=== PATIENT | female | born 1995 | race Caucasian/White ===

== ENCOUNTER 2019-10-08 15:13 | Observation (INO) | payer MEDICAID, OTHER ==
--- NOTE | 2019-10-08 16:18 | EDM.PDOC ---
ED HPI GENERAL MEDICAL PROBLEM - General Chief Complaint: Genitourinary Problem Stated Complaint: 15 WKS PG/POSS UTI Time Seen by Provider: 10/08/19 15:41 Source of Information: Reports: Patient History Limitations: Reports: No Limitations - History of Present Illness INITIAL COMMENTS - FREE TEXT/NARRATIVE: Patient is a 23-year-old female who presents with complaints of frequency, dysuria, back pain, fever, chills, nausea, and vomiting. Patient is 15 weeks . She states that the symptoms initially began early last week. She has a history of frequent urinary tract infections that generally go away on their own. She states symptoms did disappear Tuesday, however Tuesday they returned and have been getting progressively worse. Yesterday she began to develop a fever which she states was around 100.0, however she had been taking Tylenol. She also has bilateral low back pain. Today she started having nausea and vomiting. She denies any uterine cramping or vaginal bleeding. 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 ED EXAM, RENAL/ - Physical Exam Exam: See Below General Appearance: Alert, WD/WN, No Apparent Distress Respiratory/Chest: No Respiratory Distress, Lungs Clear, Normal Breath Sounds, No Accessory Muscle Use, Chest Non-Tender Cardiovascular: Normal Peripheral Pulses, Regular Rate, Rhythm, No Edema, No Gallop, No JVD, No Murmur, No Rub GI/Abdominal: Normal Bowel Sounds, Soft, No Organomegaly, No Distention, No Abnormal Bruit, No Mass, Tender (Suprapubic) (Female) Exam: Enlarged Uterus, Heart Tones (158) Course - Vital Signs Last Recorded V/S: Last Vital Signs Temp 98.2 F 10/08/19 15:47 Pulse 81 10/08/19 15:47 Resp 20 10/08/19 15:47 BP 111/77 10/08/19 15:47 Pulse Ox 100 10/08/19 15:47 - Orders/Labs/Meds Orders: Active Orders 24 hr Category Date Time Status Patient Status Manage Transfer [TRANSFER] Routine ADT 10/08/19 18:18 Active Sodium Chloride 0.9% [Normal Saline] 1,000 ml Med 10/08/19 17:45 Active IV ASDIRECTED cefTRIAXone [Rocephin] 2 gm Med 10/08/19 17:45 Active Sodium Chloride 0.9% [Normal Saline] 100 ml IV Q24H Resuscitation Status Routine Resus Stat 10/08/19 18:18 Ordered Medication Orders Ceftriaxone Sodium 2 gm/ (Sodium Chloride) 100 mls @ 200 mls/hr IV Q24H [facility] Last Admin: 10/08/19 17:48 Dose: 200 mls/hr Sodium Chloride (Normal Saline) 1,000 mls @ 150 mls/hr IV ASDIRECTED [facility] Last Admin: 10/08/19 17:47 Dose: 150 mls/hr Labs: Laboratory Tests 10/08/19 10/08/19 10/08/19 Range/Units 15:52 15:52 16:04 WBC 8.32 (3.98-10.04) K/mm3 RBC 3.92 L (3.98-5.22) M/mm3 Hgb 10.9 L (11.2-15.7) gm/dl Hct 33.2 L (34.1-44.9) % MCV 84.7 (79.4-94.8) fl MCH 27.8 (25.6-32.2) pg MCHC 32.8 (32.2-35.5) g/dl RDW Std Deviation 43.9 (36.4-46.3) fL Plt Count 184 (182-369) K/mm3 MPV 10.6 (9.4-12.3) fl Neut % (Auto) 73.4 H (34.0-71.1) % Lymph % (Auto) 14.7 L (19.3-51.7) % [place] % (Auto) 6.3 (4.7-12.5) % Eos % (Auto) 5.0 (0.7-5.8) Baso % (Auto) 0.1 (0.1-1.2) % Neut # (Auto) 6.11 (1.56-6.13) K/mm3 Lymph # (Auto) 1.22 (1.18-3.74) K/mm3 [place] # (Auto) 0.52 H (0.24-0.36) K/mm3 Eos # (Auto) 0.42 H (0.04-0.36) K/mm3 Baso # (Auto) 0.01 (0.01-0.08) K/mm3 Sodium 140 (136-145) mEq/L Potassium 4.3 (3.5-5.1) mEq/L Chloride 106 (98-107) mEq/L Carbon Dioxide 22 (21-32) mEq/L Anion Gap 16.3 H (5-15) BUN 10 (7-18) mg/dL Creatinine 0.6 (0.55-1.02) mg/dL Est Cr Clr Drug Dosing 160.20 mL/min Estimated GFR (MDRD) > 60 (>60) mL/min BUN/Creatinine Ratio 16.7 (14-18) Glucose 87 (74-106) mg/dL Calcium 9.1 (8.5-10.1) mg/dL Total Bilirubin 0.2 (0.2-1.0) mg/dL AST 12 L (15-37) U/L ALT 17 (14-59) U/L Alkaline Phosphatase 66 (46-116) U/L C-Reactive Protein 0.3 (<1.0) mg/dL Total Protein 6.8 (6.4-8.2) g/dl Albumin 3.0 L (3.4-5.0) g/dl Globulin 3.8 gm/dL Albumin/Globulin Ratio 0.8 L (1-2) Urine Color Yellow (Yellow) Urine Appearance Slt cloudy H (Clear) Urine pH 7.0 (5.0-8.0) Ur Specific [place] > or = 1.030 (1.005-1.030) Urine Protein Trace H (Negative) Urine Glucose (UA) Negative (Negative) Urine Ketones Negative (Negative) Urine Occult Blood 1+ H (Negative) Urine Nitrite Negative (Negative) Urine Bilirubin Negative (Negative) Urine Urobilinogen 1.0 (0.2-1.0) Ur Leukocyte Esterase 1+ H (Negative) Urine RBC 10-20 H (0-5) /hpf Urine WBC 50-75 H (0-5) /hpf Ur Squamous Epith Cells 5-10 H (0-5) /hpf Urine Bacteria Moderate H (FEW) /hpf Urine Mucus Few (FEW) /hpf Meds: Medications Generic Name Dose Route Start Last Admin Trade Name Freq PRN Reason Stop Dose Admin Ceftriaxone Sodium 2 gm/ 100 mls @ 200 mls/hr 10/08/19 17:45 10/08/19 17:48 Sodium Chloride IV 200 mls/hr Q24H OLAMIDE Administration Sodium Chloride 1,000 mls @ 150 mls/hr 10/08/19 17:45 10/08/19 17:47 Normal Saline IV 150 mls/hr ASDIRECTED OLAMIDE Administration Discontinued Medications Generic Name Dose Route Start Last Admin Trade Name Freq PRN Reason Stop Dose Admin Hydromorphone HCl 0.5 mg 10/08/19 17:40 10/08/19 17:47 Dilaudid IVPUSH 10/08/19 17:41 0.5 mg ONETIME ONE Administration - Re-Assessments/Exams Free Text/Narrative Re-Assessment/Exam: 10/08/19 1730 Patient's hematology showed a WBC normal at 8.32, hemoglobin slightly low at 10.9, anion gap slightly elevated at 16.3. CRP was normal at 0.3. Urinalysis was positive for urinary tract infection. Based on the patient's symptoms, I feel this must be treated as a pyelonephritis as opposed to a uncomplicated urinary tract infection. I did call and speak with the on-call RADIOGRAPHER TECHNOLOGIST, Dr. Hughes. He is in agreement with this and recommended that the patient be admitted for IV antibiotics. He recommended that we give Rocephin 2 g IV now. Discussed this with the patient and she is in agreement with this plan. She does continue to have low back pain. I will give her a dose of Dilaudid 0.5 mg now. Have also ordered IV fluids of NS at 150. Dr. Hughes will come to see the patient and admit. 10/08/19 18:15 Dr. Hughes was here to see the patient. He will admit her as an inpatient for pyelonephritis. Departure - Departure Time of Disposition: 18:45 Disposition: Admitted As Inpatient 64 Condition: Fair Clinical Impression: Pyelonephritis - Discharge Information Referrals: PCP,None [Primary Care Provider] - Forms: ED Department Discharge Sepsis Event Note - Evaluation Sepsis Screening Result: No Definite Risk - Focused Exam Vital Signs: Vital Signs Temp Pulse Resp BP Pulse Ox 10/08/19 15:47 98.2 F 81 20 111/77 100 Date Exam was Performed: 10/08/19 Time Exam was Performed: 18:45 - My Orders Last 24 Hours: My Active Orders 10/08/19 17:45 Sodium Chloride 0.9% [Normal Saline] 1,000 ml IV ASDIRECTED cefTRIAXone [Rocephin] 2 gm Sodium Chloride 0.9% [Normal Saline] 100 ml IV Q24H - Assessment/Plan Last 24 Hours: My Active Orders 10/08/19 17:45 Sodium Chloride 0.9% [Normal Saline] 1,000 ml IV ASDIRECTED cefTRIAXone [Rocephin] 2 gm Sodium Chloride 0.9% [Normal Saline] 100 ml IV Q24H
[2019-10-08] MEDS ORDERED: HYDROmorphone 0.5 MG/0.5 ML Syringe IVPUSH ONE (17:40)
[2019-10-08] MEDS ORDERED: Sodium Chloride 0.9% 1,000 ML IV SCH ×2 (17:45→19:33)
[2019-10-08] MEDS: cefTRIAXone 2 GM in Sodium Chloride 0.9% 100 ML IV SCH (17:48)
--- NOTE | 2019-10-08 18:17 | PCM.LDHP ---
L&D History of Present Illness - General Date of Service: 10/08/19 Admit Problem/Dx: Admission Diagnosis/Problem Admission Diagnosis/Problem Source of Information: Patient History Limitations: Reports: No Limitations - History of Present Illness Introduction:: Nikki Smallwood is a 23-year-old -1-0-5 female at 15 weeks 2 days by certain LMP of 06/23/2019 (NAOMI 03/29/2020) that was confirmed by an ultrasound done at approximately 8 weeks gestational age while she was living in [place]. She reports that she had been having urinary tract infection-like symptoms last week with pain and burning with urination but she was able to get the symptoms to go away with increased fluid intake as well as cranberry juice. She states that on Tuesday the symptoms came back and were worse than what they were earlier in the week. She states that she was having severe pain and burning with urination as well as urinary frequency. She denies any urinary urgency. She states that she started to have right-sided back pain on Tuesday as well as fevers but did not come in initially. She states that this morning she started to have significant nausea and vomiting and was not able to keep anything down. She was able to drink a small amount of water this morning but then had emesis after breakfast. She continues to have significant dysuria and pelvic pain. She states that she is having a small amount of uterine cramping but denies any contractions or significant pain. She did not have any of the uterine cramping-like symptoms outside of the times when she was having the urinary tract infection-like symptoms. She denies any leaking of fluid or vaginal bleeding. She denies any respiratory symptoms such as shortness of breath or cough. She states that she has been feeling fevers and chills throughout the day today. She has not felt significant movement but has felt some occasional flutters in this . She has not established care with a provider in this and is planning on moving back to [place] with her in the next 1 to 2 weeks. Timing/Duration: Reports: gradual onset, getting worse Location, : Reports: Lower back, Flank Quality: Reports: Burning, Pressure, Throbbing Severity: Moderate Improves with: Reports: None Worsens with: Reports: None Associated Symptoms: Denies: vaginal bleeding, vaginal discharge, vaginal fluid - Related Data Allergies/Adverse Reactions: Allergies Allergy/AdvReac Type Severity Reaction Status Date / Time No Known Allergies Allergy Verified 01/26/19 15:52 CDT Home Medications: Home Meds Ferrous Sulfate, Dried [Iron] 1 tab PO TID 10/08/19 [History] Pnv No.103/Folic/Om3s/Fish Oil [ Gummies] 1 tab PO BID 10/08/19 [History ] Past Medical History - Past Health History Medical/Surgical History: Denies Medical/Surgical History Genitourinary History: Reports: UTI, Recurrent 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: : 6 Para: 5 Psychiatric History: Reports: Anxiety, Bipolar, Depression, Suicide Attempt ( History of) Hematologic History: Reports: Anemia Social & Family History - Tobacco Use Smoking Status *Q: Never Smoker - Tobacco Core Measures Tobacco Use/Smoking Within Last 30 Days: No Smokeless Tobacco Use in Last 30 Days: No - Caffeine Use Caffeine Use: Reports: Tea - Alcohol Use Alcohol Use History: No - Recreational Drug Use Recreational Drug Use: No - Living Situation & Occupation Living situation: Reports: , with Spouse H&P Review of Systems - Review of Systems: Review Of Systems: See Below General: Reports: Fever, Chills. Denies: Malaise, Weakness, Fatigue HEENT: Reports: Headaches. Denies: Post Nasal Drip, Sinus Congestion, Sore Throat, Visual Changes Pulmonary: Denies: Shortness of Breath, Wheezing, Cough Cardiovascular: Denies: Chest Pain, Palpitations, Dyspnea on Exertion, Orthopnea Gastrointestinal: Reports: Nausea, Vomiting. Denies: Abdominal Pain, Constipation, Diarrhea Genitourinary: Reports: Dysuria, Frequency, Burning, Pain, Flank Pain. Denies: Urgency, Hematuria Musculoskeletal: Denies: Back Pain Skin: Denies: Rash, Lesions Psychiatric: Denies: Depression, Anxiety Hematologic/Lymphatic: Reports: Anemia L&D Exam - Exam Exam: See Below - Vital Signs Vital Signs: Last Vital Signs Temp 36.8 C 10/08/19 15:47 Pulse 81 10/08/19 15:47 Resp 20 10/08/19 15:47 BP 111/77 10/08/19 15:47 Pulse Ox 100 10/08/19 15:47 Weight: 97.522 kg - OB Specific Fundal Height In cm: 16 (4 below umbilicus) Movement: Not Appreciated Heart Tones: Present Heart Tones per Min: 155 - Exam General: Alert, Oriented HEENT: Conjunctiva Clear, EOMI Neck: Supple, Trachea Midline Lungs: Clear to Auscultation, Normal Respiratory Effort Cardiovascular: Regular Rate, Regular Rhythm GI/Abdominal Exam: Soft, No Distention, Tender (mild suprapubic tenderness). No : Guarding, Rigid, Rebound Genitourinary: Deferred Back Exam: Normal Inspection, Full Range of Motion, CVA Tenderness (R) (mild tenderness). No: CVA Tenderness (L) Extremities: Normal Inspection, No Pedal Edema Skin: Warm, Dry, Intact Psychiatric: Alert, Normal Affect, Normal Mood. No: Suicidal Ideation - Patient Data Lab Results Last 24 hrs: Laboratory Results - last 24 hr 10/08/19 10/08/19 10/08/19 Range/Units 15:52 15:52 16:04 WBC 8.32 (3.98-10.04) K/mm3 RBC 3.92 L (3.98-5.22) M/mm3 Hgb 10.9 L (11.2-15.7) gm/dl Hct 33.2 L (34.1-44.9) % MCV 84.7 (79.4-94.8) fl MCH 27.8 (25.6-32.2) pg MCHC 32.8 (32.2-35.5) g/dl RDW Std Deviation 43.9 (36.4-46.3) fL Plt Count 184 (182-369) K/mm3 MPV 10.6 (9.4-12.3) fl Neut % (Auto) 73.4 H (34.0-71.1) % Lymph % (Auto) 14.7 L (19.3-51.7) % [place] % (Auto) 6.3 (4.7-12.5) % Eos % (Auto) 5.0 (0.7-5.8) Baso % (Auto) 0.1 (0.1-1.2) % Neut # (Auto) 6.11 (1.56-6.13) K/mm3 Lymph # (Auto) 1.22 (1.18-3.74) K/mm3 [place] # (Auto) 0.52 H (0.24-0.36) K/mm3 Eos # (Auto) 0.42 H (0.04-0.36) K/mm3 Baso # (Auto) 0.01 (0.01-0.08) K/mm3 Sodium 140 (136-145) mEq/L Potassium 4.3 (3.5-5.1) mEq/L Chloride 106 (98-107) mEq/L Carbon Dioxide 22 (21-32) mEq/L Anion Gap 16.3 H (5-15) BUN 10 (7-18) mg/dL Creatinine 0.6 (0.55-1.02) mg/dL Est Cr Clr Drug Dosing 160.20 mL/min Estimated GFR (MDRD) > 60 (>60) mL/min BUN/Creatinine Ratio 16.7 (14-18) Glucose 87 (74-106) mg/dL Calcium 9.1 (8.5-10.1) mg/dL Total Bilirubin 0.2 (0.2-1.0) mg/dL AST 12 L (15-37) U/L ALT 17 (14-59) U/L Alkaline Phosphatase 66 (46-116) U/L C-Reactive Protein 0.3 (<1.0) mg/dL Total Protein 6.8 (6.4-8.2) g/dl Albumin 3.0 L (3.4-5.0) g/dl Globulin 3.8 gm/dL Albumin/Globulin Ratio 0.8 L (1-2) Urine Color Yellow (Yellow) Urine Appearance Slt cloudy H (Clear) Urine pH 7.0 (5.0-8.0) Ur Specific [place] > or = 1.030 (1.005-1.030) Urine Protein Trace H (Negative) Urine Glucose (UA) Negative (Negative) Urine Ketones Negative (Negative) Urine Occult Blood 1+ H (Negative) Urine Nitrite Negative (Negative) Urine Bilirubin Negative (Negative) Urine Urobilinogen 1.0 (0.2-1.0) Ur Leukocyte Esterase 1+ H (Negative) Urine RBC 10-20 H (0-5) /hpf Urine WBC 50-75 H (0-5) /hpf Ur Squamous Epith Cells 5-10 H (0-5) /hpf Urine Bacteria Moderate H (FEW) /hpf Urine Mucus Few (FEW) /hpf Result Diagrams: 10/08/19 15:52 10/08/19 15:52 - Problem List (1) 15 weeks gestation of SNOMED Code(s): 2818778 ICD Code: Z3A.15 - 15 WEEKS GESTATION OF Status: Acute Current Visit: Yes (2) Pyelonephritis affecting in second trimester SNOMED Code(s): 80241127, [id number], 015559098, 219059637 ICD Code: O23.02 - INFECTIONS OF KIDNEY IN , SECOND TRIMESTER Status: Acute Current Visit: Yes (3) Anxiety SNOMED Code(s): 99351895 ICD Code: F41.9 - ANXIETY DISORDER, UNSPECIFIED Status: Acute Current Visit: Yes (4) Depression SNOMED Code(s): 94407595 ICD Code: F32.9 - MAJOR DEPRESSIVE DISORDER, SINGLE EPISODE, UNSPECIFIED Status: Acute Current Visit: Yes Problem List Initiated/Reviewed/Updated: Yes Orders Last 24hrs: Active Orders 24 hr Category Date Time Status Sodium Chloride 0.9% [Normal Saline] 1,000 ml Med 10/08/19 17:45 Active IV ASDIRECTED cefTRIAXone [Rocephin] 2 gm Med 10/08/19 17:45 Active Sodium Chloride 0.9% [Normal Saline] 100 ml IV Q24H Medication Orders Ceftriaxone Sodium 2 gm/ (Sodium Chloride) 100 mls @ 200 mls/hr IV Q24H [facility] Last Admin: 10/08/19 17:48 Dose: 200 mls/hr Sodium Chloride (Normal Saline) 1,000 mls @ 150 mls/hr IV ASDIRECTED [facility] Last Admin: 10/08/19 17:47 Dose: 150 mls/hr Assessment/Plan Comment:: 23-year-old -1-0-5 female at 15 weeks 2 days with pyelonephritis * Refer to observation for pyelonephritis in * Vitals twice per shift including temperature * Activity as tolerated * heart tones once per shift and as needed * Regular diet as tolerated * Normal saline at 125 mL/h until patient tolerating normal amount of regular intake * Tylenol 650 mg every 6 hours as needed for fever and pain. May use oxycodone 5 mg p.o. every 4 hours as needed for breakthrough pain that is not controlled with Tylenol. * Zofran 4 mg oral dissolving tablet 4 mild nausea and vomiting. May use Zofran 4 mg IV if not tolerating oral medications. * vitamin daily * Ferrous sulfate 1 tablet daily with breakfast for mild anemia * Ceftriaxone 2 g IV given in the emergency department and will continue every 24 hours for treatment of her pyelonephritis Baldemar Hughes MD 6:44 PM 10/08/2019
[2019-10-08] MEDS ORDERED: Ondansetron 4 MG/2 ML SDV IVPUSH ONE (19:04)
[2019-10-08] MEDS ORDERED: oxyCODONE 5 MG Tab PO PRN (19:33)
[2019-10-08] MEDS ORDERED: Ondansetron 4 MG Tab.DIS PO PRN (19:33)
[2019-10-08] MEDS: Acetaminophen 325 MG Tab PO PRN (20:35)
[2019-10-09] MEDS: Acetaminophen 325 MG Tab PO PRN ×2 (06:19→12:42)
[2019-10-09] MEDS ORDERED: Ferrous Sulfate 324 MG Tab.EC PO SCH (07:00)
[2019-10-09] MEDS ORDERED: Prenatal Multivitamin with Calcium/Folic Acid/Iron Tab PO SCH (09:00)
[2019-10-09] MEDS ORDERED: Sodium Chloride 0.9% 10 ML Syringe FLUSH PRN (09:16)
--- NOTE | 2019-10-09 09:51 | PCM.SN ---
- Free Text/Narrative Note: Antepartum Progress Note Subjective: Hospital day #2 Nikki Smallwood is a 23-year-old female at 15 weeks 3 days (NAOMI 03/29/2020 ) with pyelonephritis in Patient reports that her pain has improved and denies any fevers or chills overnight. Reports that she did have some mild nausea after eating a sandwich last evening. Her nausea was significantly improved and she did not have any emesis. She reports that she continues to have a small amount of burning in the back pain with urination. But it has improved. She reports that she did have one time overnight when she used oxycodone to control some of her pain. She did not have any nausea or vomiting after taking the oxycodone. She reports that she has been ambulating to the bathroom without difficulty but has been moving somewhat slowly. Reports that she has been feeling hungry this morning and ordered breakfast. Denies any abdominal pain or cramping. Denies any leaking of fluid or vaginal bleeding. Continues to feel some small flutters for movement at this time. Objective: Vitals Vital Signs - 24 hr 10/08/19 10/08/19 10/09/19 15:47 20:18 02:20 Temperature 36.7 C 36.6 C Temperature [ 36.8 C Temporal] Pulse, 67 62 Peripheral Pulse, 81 Peripheral [ Left Pulse Oximetry] Respiratory 20 16 15 Rate Blood Pressure 105/71 97/58 L Blood Pressure 111/77 [Left Upper Arm ] O2 Sat by Pulse 100 100 98 Oximetry Physical exam: General Appearance: No distress, alert and oriented Respiratory: Clear to auscultation bilaterally Cardiovascular: Regular rate and rhythm Gastrointestinal: Soft, nontender, nondistended, gravid Back: Mild low back pain with pressure. No CVA tenderness bilaterally. Extremities: No edema noted in lower extremities bilaterally Laboratory Results - last 24 hr 10/08/19 10/08/19 10/08/19 Range/Units 15:52 15:52 16:04 WBC 8.32 (3.98-10.04) K/mm3 RBC 3.92 L (3.98-5.22) M/mm3 Hgb 10.9 L (11.2-15.7) gm/dl Hct 33.2 L (34.1-44.9) % MCV 84.7 (79.4-94.8) fl MCH 27.8 (25.6-32.2) pg MCHC 32.8 (32.2-35.5) g/dl RDW Std Deviation 43.9 (36.4-46.3) fL Plt Count 184 (182-369) K/mm3 MPV 10.6 (9.4-12.3) fl Neut % (Auto) 73.4 H (34.0-71.1) % Lymph % (Auto) 14.7 L (19.3-51.7) % [place] % (Auto) 6.3 (4.7-12.5) % Eos % (Auto) 5.0 (0.7-5.8) Baso % (Auto) 0.1 (0.1-1.2) % Neut # (Auto) 6.11 (1.56-6.13) K/mm3 Lymph # (Auto) 1.22 (1.18-3.74) K/mm3 [place] # (Auto) 0.52 H (0.24-0.36) K/mm3 Eos # (Auto) 0.42 H (0.04-0.36) K/mm3 Baso # (Auto) 0.01 (0.01-0.08) K/mm3 Sodium 140 (136-145) mEq/L Potassium 4.3 (3.5-5.1) mEq/L Chloride 106 (98-107) mEq/L Carbon Dioxide 22 (21-32) mEq/L Anion Gap 16.3 H (5-15) BUN 10 (7-18) mg/dL Creatinine 0.6 (0.55-1.02) mg/dL Est Cr Clr Drug Dosing 160.20 mL/min Estimated GFR (MDRD) > 60 (>60) mL/min BUN/Creatinine Ratio 16.7 (14-18) Glucose 87 (74-106) mg/dL Calcium 9.1 (8.5-10.1) mg/dL Total Bilirubin 0.2 (0.2-1.0) mg/dL AST 12 L (15-37) U/L ALT 17 (14-59) U/L Alkaline Phosphatase 66 (46-116) U/L C-Reactive Protein 0.3 (<1.0) mg/dL Total Protein 6.8 (6.4-8.2) g/dl Albumin 3.0 L (3.4-5.0) g/dl Globulin 3.8 gm/dL Albumin/Globulin Ratio 0.8 L (1-2) Urine Color Yellow (Yellow) Urine Appearance Slt cloudy H (Clear) Urine pH 7.0 (5.0-8.0) Ur Specific [place] > or = 1.030 (1.005-1.030) Urine Protein Trace H (Negative) Urine Glucose (UA) Negative (Negative) Urine Ketones Negative (Negative) Urine Occult Blood 1+ H (Negative) Urine Nitrite Negative (Negative) Urine Bilirubin Negative (Negative) Urine Urobilinogen 1.0 (0.2-1.0) Ur Leukocyte Esterase 1+ H (Negative) Urine RBC 10-20 H (0-5) /hpf Urine WBC 50-75 H (0-5) /hpf Ur Squamous Epith Cells 5-10 H (0-5) /hpf Urine Bacteria Moderate H (FEW) /hpf Urine Mucus Few (FEW) /hpf FHTs: 145s Assessment: Nikki Smallwood is a 23-year-old female at 15 weeks 3 days with pyelonephritis in Plan: Patient showing some improvement today. No fevers overnight. Her symptoms have been improving although she does continue to have some mild low back pain. Suspect that this is due to the ongoing infection. Plan will be to continue IV Rocephin at around 24 hours today and discharge home on oral antibiotics. Saline lock IV at this time Continue Tylenol and oxycodone as needed. Anticipate discharge later this afternoon after patient has received a second dose of IV Rocephin 2 g Baldemar Hughes M.D. 9:50 AM 10/09/2019
[2019-10-09] MEDS: cefTRIAXone 2 GM in Sodium Chloride 0.9% 100 ML IV SCH (16:13)
--- NOTE | 2019-10-09 17:25 | PCM.SN ---
- Free Text/Narrative Note: Antepartum Progress Note Subjective: Hospital day #2 afternoon check Nikki Smallwood is a 23-year-old female at 15 weeks 3 days (NAOMI 03/29/2020 ) with pyelonephritis in Patient reports that her pain has improved throughout the day and denies any fevers or chills. Denies any nausea or vomiting. Reports that she has tolerated regular diet throughout the day. Orts that her burning with urination has resolved and that she only has very mild back pain at this time. She reports that she has been ambulating to the bathroom without difficulty. Denies any abdominal pain or cramping. Denies any leaking of fluid or vaginal bleeding. Continues to feel some small flutters for movement at this time. Objective: Vitals Vital Signs 10/09/19 15:00 Temperature [ 36.9 C Temporal] Pulse, 80 Peripheral [ Left Pulse Oximetry] Respiratory 16 Rate Blood Pressure 118/76 [Left Upper Arm ] O2 Sat by Pulse 100 Oximetry Physical exam: General Appearance: No distress, alert and oriented Respiratory: Unlabored breathing FHTs: 145s Assessment: Nikki Smallwood is a 23-year-old female at 15 weeks 3 days with pyelonephritis in status post 2 doses of IV Rocephin Plan: Patient with improvement throughout the day today. She received second dose of IV Rocephin and feels like she is doing well enough to go home. Patient would like to be discharged. IV removed Continue Tylenol as needed for pain Discharge home with oral antibiotics to start in the morning tomorrow. Baldemar Hughes M.D. 5:25 PM 10/09/2019
--- NOTE | 2019-10-09 17:34 | PCM.DCSUM1 ---
Discharge Summary - Hospital Course Free Text/Narrative:: Nikki Smallwood is a 23-year-old -1-0-5 female at 15 weeks 2 days by certain LMP of 06/23/2019 (NAOIM 03/29/2020) that was confirmed by an ultrasound done at approximately 8 weeks gestational age while she was living in [place]. She reports that she had been having urinary tract infection-like symptoms last week with pain and burning with urination but she was able to get the symptoms to go away with increased fluid intake as well as cranberry juice. She states that on Tuesday the symptoms came back and were worse than what they were earlier in the week. She states that she was having severe pain and burning with urination as well as urinary frequency. She denies any urinary urgency. She states that she started to have right-sided back pain on Tuesday as well as fevers but did not come in initially. She states that this morning she started to have significant nausea and vomiting and was not able to keep anything down. She was able to drink a small amount of water this morning but then had emesis after breakfast. She continues to have significant dysuria and pelvic pain. She states that she is having a small amount of uterine cramping but denies any contractions or significant pain. She did not have any of the uterine cramping-like symptoms outside of the times when she was having the urinary tract infection-like symptoms. She denies any leaking of fluid or vaginal bleeding. She denies any respiratory symptoms such as shortness of breath or cough. She states that she has been feeling fevers and chills throughout the day today. She has not felt significant movement but has felt some occasional flutters in this . HPI Initial Comments: Nikki Smallwood is a 23-year-old -1-0-5 female at 15 weeks 2 days by certain LMP of 06/23/2019 (NAOMI 03/29/2020) that was confirmed by an ultrasound done at approximately 8 weeks gestational age while she was living in [place]. She reports that she had been having urinary tract infection-like symptoms last week with pain and burning with urination but she was able to get the symptoms to go away with increased fluid intake as well as cranberry juice. She states that on Tuesday the symptoms came back and were worse than what they were earlier in the week. She states that she was having severe pain and burning with urination as well as urinary frequency. She denies any urinary urgency. She states that she started to have right-sided back pain on Tuesday as well as fevers but did not come in initially. She states that this morning she started to have significant nausea and vomiting and was not able to keep anything down. She was able to drink a small amount of water this morning but then had emesis after breakfast. She continues to have significant dysuria and pelvic pain. She states that she is having a small amount of uterine cramping but denies any contractions or significant pain. She did not have any of the uterine cramping-like symptoms outside of the times when she was having the urinary tract infection-like symptoms. She denies any leaking of fluid or vaginal bleeding. She denies any respiratory symptoms such as shortness of breath or cough. She states that she has been feeling fevers and chills throughout the day today. She has not felt significant movement but has felt some occasional flutters in this . Brief History: Nikki Smallwood is a 23-year-old -1-0-5 female at 15 weeks 2 days by certain LMP of 06/23/2019 (NAOMI 03/29/2020) that was confirmed by an ultrasound done at approximately 8 weeks gestational age while she was living in [place]. She reports that she had been having urinary tract infection-like symptoms last week with pain and burning with urination but she was able to get the symptoms to go away with increased fluid intake as well as cranberry juice. She states that on Tuesday the symptoms came back and were worse than what they were earlier in the week. She states that she was having severe pain and burning with urination as well as urinary frequency. She denies any urinary urgency. She states that she started to have right-sided back pain on Tuesday as well as fevers but did not come in initially. She states that this morning she started to have significant nausea and vomiting and was not able to keep anything down. She was able to drink a small amount of water this morning but then had emesis after breakfast. She continues to have significant dysuria and pelvic pain. She states that she is having a small amount of uterine cramping but denies any contractions or significant pain. She did not have any of the uterine cramping-like symptoms outside of the times when she was having the urinary tract infection-like symptoms. She denies any leaking of fluid or vaginal bleeding. She denies any respiratory symptoms such as shortness of breath or cough. She states that she has been feeling fevers and chills throughout the day today. She has not felt significant movement but has felt some occasional flutters in this . Diagnosis: Stroke: No - Discharge Data Discharge Date: 10/09/19 Discharge Disposition: Home, Self-Care 01 Condition: Good - Referral to Home Health Primary Care Physician: PCP None - Discharge Diagnosis/Problem(s) (1) Pyelonephritis SNOMED Code(s): 25521650 ICD Code: N12 - TUBULO-INTERSTITIAL NEPHRITIS, NOT SPCF ACUTE OR CHRONIC Status: Acute Current Visit: Yes - Patient Summary/Data Complications: None Consults: None Hospital Course: Patient was seen in the emergency department for significant right-sided flank pain with fevers. She was diagnosed with pyelonephritis after other causes of her back pain were ruled out. Her urinalysis showed strong likelihood of urinary tract infection and given her right-sided CVA tenderness with elevated temperature she was diagnosed with pyelonephritis. She was referred for observation from the emergency department for management with IV antibiotics. She was given Rocephin 2 g IV for treatment of her pyelonephritis. She was continued on normal saline at 125 mL/h for fluid hydration. She was given 1 dose of Dilaudid for pain management in the emergency department. Overnight she was having significant nausea and vomiting as well as back pain. She received 1 dose of oxycodone 5 mg p.o. for treatment of her back pain. In the morning of hospital day #2 her pain was continuing but her fever had resolved. She was able to tolerate regular diet in the morning of hospital day #2 and her IV was saline locked. She was improving throughout the day on hospital day #2 and her pain was able to be controlled with Tylenol alone. In the afternoon of hospital day #2 she was given second dose of Rocephin 2 g IV and afterwards she felt well enough to be able to be discharged home. On review of patient she was doing well at this time. She was tolerating regular diet without any nausea or vomiting. Her pain was minimal and able to be controlled with Tylenol. She was ambulating without difficulty. She was afebrile for 24 hours. Patient was discharged home with prescription for Keflex 500 mg 4 times daily for 10 days. Patient is to follow-up with her regular [facility] [facility] in [place] once she returns to her home in [place]. - Patient Instructions Diet: Regular Diet as Tolerated Activity: Apply Ice, As Tolerated Driving: May Drive Today Showering/Bathing: May Shower Notify Provider of: Fever, Increased Pain, Nausea and/or Vomiting - Discharge Plan *PRESCRIPTION DRUG MONITORING PROGRAM REVIEWED*: Not Applicable *COPY OF PRESCRIPTION DRUG MONITORING REPORT IN PATIENT OMER: Not Applicable Prescriptions/Med Rec: Cephalexin [Keflex] 500 mg PO QID 10 Days #40 capsule Ondansetron [Zofran ODT] 4 mg PO Q4H PRN #30 tab.dis PRN Reason: Nausea/Vomiting Home Medications: Home Meds Ferrous Sulfate, Dried [Iron] 1 tab PO TID 10/08/19 [History] Pnv No.103/Folic/Om3s/Fish Oil [ Gummies] 1 tab PO BID 10/08/19 [History ] Acetaminophen [Tylenol] 650 mg PO Q6H PRN tablet 10/09/19 [Rx] Cephalexin [Keflex] 500 mg PO QID 10 Days #40 capsule 10/09/19 [Rx] Ondansetron [Zofran ODT] 4 mg PO Q4H PRN #30 tab.dis 10/09/19 [Rx] Patient Handouts: Pyelonephritis During Forms: ED Department Discharge Referrals: PCP,None [Primary Care Provider] - (Follow-up with your regular [facility] [facility] once you have returned to [place].) - Discharge Summary/Plan Comment DC Time >30 min.: No - Patient Data Vitals - Most Recent: Last Vital Signs Temp 36.9 C 10/09/19 15:00 Pulse 80 10/09/19 15:00 Resp 16 10/09/19 15:00 BP 118/76 10/09/19 15:00 Pulse Ox 100 10/09/19 15:00 Weight - Most Recent: 97.522 kg I&O - Last 24 hours: Intake & Output 10/09/19 10/09/19 10/09/19 06:59 14:59 22:59 Intake Total 120 360 Balance 120 360 Med Orders - Current: Current Medications Acetaminophen (Tylenol) 650 mg PO Q6H PRN PRN Reason: mild pain and fever Last Admin: 10/09/19 12:42 Dose: 650 mg Ferrous Sulfate (Ferrous Sulfate) 324 mg PO WITHBREAKFAST [facility] Last Admin: 10/09/19 08:24 Dose: 324 mg Ceftriaxone Sodium 2 gm/ (Sodium Chloride) 100 mls @ 200 mls/hr IV Q24H [facility] Last Admin: 10/09/19 16:13 Dose: 200 mls/hr Ondansetron HCl (Zofran Odt) 4 mg PO Q4H PRN PRN Reason: Nausea/Vomiting Oxycodone HCl (Oxycodone) 5 mg PO Q4H PRN PRN Reason: Pain (severe 7-10) Last Admin: 10/09/19 02:09 Dose: 5 mg Prenat Multivit/[place]/Iron/Folic Ac ( Plus Iron) 1 each PO DAILY [facility] Last Admin: 10/09/19 08:24 Dose: 1 each Sodium Chloride (Saline Flush) 10 ml FLUSH ASDIRECTED PRN PRN Reason: Keep Vein Open Discontinued Medications Hydromorphone HCl (Dilaudid) 0.5 mg IVPUSH ONETIME ONE Stop: 10/08/19 17:41 Last Admin: 10/08/19 17:47 Dose: 0.5 mg Sodium Chloride (Normal Saline) 1,000 mls @ 150 mls/hr IV ASDIRECTED [facility] Last Admin: 10/08/19 17:47 Dose: 150 mls/hr Sodium Chloride (Normal Saline) 1,000 mls @ 125 mls/hr IV ASDIRECTED [facility] Last Admin: 10/09/19 02:14 Dose: 125 mls/hr Ondansetron HCl (Zofran) 4 mg IVPUSH ONETIME ONE Stop: 10/08/19 19:05 Last Admin: 10/08/19 19:14 Dose: 4 mg
== END 2019-10-09 17:52 | disposition home or self-care (01) ==
LOC: JD.ED 15:13 → JD.OB 18:18
PROVIDERS: ADMIT Obstetrics & Gynecology; ATTEND Obstetrics & Gynecology
DX: O23.02 Infections of kidney in pregnancy, second trimester (principal); O99.342 Other mental disorders complicating pregnancy, second trimester; F41.9 Anxiety disorder, unspecified; F32.9 Major depressive disorder, single episode, unspecified; Z3A.15 15 weeks gestation of pregnancy
CPT/HCPCS: 36415; 80053; 81001; 85025; 86140; 96361; 96365; 96375; 99284; A9270; J0696; J1170; J2405; J7030; J7050